=== PATIENT | male | born 1985 | race Caucasian/White ===

== ENCOUNTER 2022-03-01 13:42 | Emergency (ER) | payer OTHER ==
[2022-03-01 13:53] VITALS: BP 138/79; PULSE 100; TEMP 97.9
[2022-03-01] MEDS ORDERED: DIPH,PERTUS(ACELL)TETVAC-LF 0.5 ML VIAL IM ONE (16:17)
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
[2022-03-01 16:36] VITALS: RESP 16
== END 2022-03-01 16:35 | disposition home or self-care (01) ==
LOC: EC 13:42
DX: S01.81XA Laceration without foreign body of other part of head, initial encounter (principal); F17.200 Nicotine dependence, unspecified, uncomplicated; Z91.011 Allergy to milk products; Z23 Encounter for immunization; Z91.018 Allergy to other foods; V28.59XA Other motorcycle passenger injured in noncollision transport accident in traffic accident, initial encounter; Y92.410 Unspecified street and highway as the place of occurrence of the external cause
CPT/HCPCS: 12011; 70450; 72125; 90471; 90715; 99283

== ENCOUNTER 2023-02-06 13:48 | Emergency (ER) | payer OTHER ==
[2023-02-06] MEDS ORDERED: SODIUM CHLORIDE 0.9% 1,000 ML IV STA ×2 (13:54→15:00)
[2023-02-06] MEDS ORDERED: KETOROLAC 15 MG/ML 1 ML VIAL IVP STA (14:03)
[2023-02-06] MEDS ORDERED: ONDANSETRON 4 MG/2 ML VIAL IVP STA (14:03)
[2023-02-06 14:05] VITALS: TEMP 98.5
--- NOTE | 2023-02-06 14:22 | ED ---
Abdominal Pain HPI - General Chief Complaint: Abdominal Pain Stated Complaint: apendix Time Seen by Provider: 02/06/23 13:54 Source: patient Mode of arrival: ambulatory Limitations: no limitations - History of Present Illness Initial Comments: Patient is a 37-year-old male who presents to the emergency department for abdominal pain. Patient has had intermittent abdominal pain for the past week. Pain radiates to his side and left lower/middle back. No fever or chills. Patient has had nausea and no vomiting. He has multiple episodes of diarrhea, n onbloody. No urinary symptoms. No history of kidney stones or infection. Patient does report drinking a lot of alcohol last night. No history of pancreatitis. No chest pain or shortness of breath. Patient does believe he has celiac disease he has never had a scope but has had gluten intolerance symptoms in the past. - Related Data Previous Rx's Medication Instructions Recorded Cephalexin [Keflex] 500 mg PO Q6HR #40 cap 11/14/14 Hydrocodone/Acetaminophen [Vicodin 1 each PO Q4HR PRN #20 tab 11/14/14 5-300 mg Tablet] Amoxic-Pot Clav 875-125Mg 1 tab PO BID #20 tab 02/06/23 [Augmentin 875-125] Ondansetron Odt [Zofran Odt] 4 mg PO Q8HR PRN #10 tab 02/06/23 Allergies Allergy/AdvReac Type Severity Reaction Status Date / Time gluten Allergy Swelling Verified 02/06/23 13:52 milk AdvReac Nausea Verified 02/06/23 13:52 Review of Systems ROS Statement: Those systems with pertinent positive or pertinent negative responses have been documented in the HPI. ROS Other: All systems not noted in ROS Statement are negative. Past Medical History Past Medical History: No Reported History Additional Past Medical History / Comment(s): With a staphylococcal infection of his right hand a few years ago. Also thought that was a spider bite. History of Any Multi-Drug Resistant Organisms: None Reported Past Surgical History: Hernia Repair Past Psychological History: No Psychological Hx Reported Smoking Status: Current every day smoker Past Alcohol Use History: Occasional Past Drug Use History: Marijuana General Exam Limitations: no limitations General appearance: alert, in distress (Pain) Head exam: Present: atraumatic, normocephalic, normal inspection Eye exam: Present: normal appearance, PERRL, EOMI. Absent: scleral icterus, conjunctival injection, periorbital swelling Respiratory exam: Present: normal lung sounds bilaterally. Absent: respiratory distress, wheezes, rales, rhonchi, stridor Cardiovascular Exam: Present: regular rate, normal rhythm, normal heart sounds. Absent: systolic murmur, diastolic murmur, rubs, gallop, clicks GI/Abdominal exam: Present: soft, tenderness (LUQ, LLQ), normal bowel sounds. Absent: distended, guarding, rebound, rigid Back exam: Present: normal inspection, full ROM, CVA tenderness (L), paraspinal tenderness (left lumbar). Absent: vertebral tenderness Neurological exam: Present: alert Psychiatric exam: Present: normal affect, normal mood Skin exam: Present: warm, dry, intact, normal color. Absent: rash Course Vital Signs 02/06/23 13:49 Temperature 98.5 F Pulse Rate 98 Respiratory 20 Rate Blood Pressure 105/49 O2 Sat by Pulse 98 Oximetry Medical Decision Making - Medical Decision Making Was pt. sent in by a medical professional or institution ([facility], [facility], urgent care, hospital, or custodial...) When possible be specific @ -[No] Did you speak to anyone other than the patient for history (EMS, parent, family, police, friend...)? What history was obtained from this source @ -[No] Did you review nursing and triage notes (agree or disagree)? Why? @ -[I reviewed and agree with nursing and triage notes] Were old charts reviewed (outside hosp., previous admission, EMS record, old EKG, old radiological studies, urgent care reports/EKG's, custodial records)? Report findings @ -[No old charts were reviewed] Differential Diagnosis (chest pain, altered mental status, abdominal pain women, abdominal pain men, vaginal bleeding, weakness, fever, dyspnea, syncope, headache, dizziness, GI bleed, back pain, seizure, CVA, palpatations, mental health)? @ -Differential Abdominal Pain Men: Appendicitis, cholecystitis, diverticulosis, ischemic bowel, pancreatitis, hepatitis, UTI, gastroenteritis, AAA, incarcerated hernia, bowel obstruction, constipation, inflammatory bowel, hepatitis, peptic ulcer disease, splenic infarction, perforated viscus, testicular torsion, this is not meant to be an all-inclusive list EKG interpreted by me (3pts min.). @ -[As above] X-rays interpreted by me (1pt min.). @ -[None done] CT interpreted by me (1pt min.). @ -Colitis, distal ileum mildly inflamed. Infectious/inflammatory process. Appendix is normal limits U/S interpreted by me (1pt. min.). @ -[None done] What testing was considered but not performed or refused? (CT, X-rays, U/S, labs)? Why? @ -[None] What meds were considered but not given or refused? Why? @ -[None] Did you discuss the management of the patient with other professionals (professionals i.e. , PA, [facility], lab, RT, psych nurse, criminal justice social worker, supervisor production managing, teacher, forest fire officer, bilingual patient support caseworker)? Give summary @ -[No] Was smoking cessation discussed for >3mins.? @ -[No] Was critical care preformed (if so, how long)? @ -[No] Were there social determinants of health that impacted care today? How? (Homelessness, low income, unemployed, alcoholism, drug addiction, transportation, low edu. Level, literacy, decrease access to med. care, senior living, rehab)? @ -[No] Was there de-escalation of care discussed even if they declined (Discuss DNR or withdrawal of care, Hospice)? DNR status @ -[No] What co-morbidities impacted this encounter? (DM, HTN, Smoking, COPD, CAD, Can cer, CVA, ARF, Chemo, Hep., AIDS, mental health diagnosis, sleep apnea, morbid obesity)? @ -[None] Was patient admitted / discharged? Hospital course, mention meds given and route, prescriptions, significant lab abnormalities, going to OR and other pertinent info. @ -37-year-old presenting for left sided abdominal pain, nausea, diarrhea. The abdomen is soft there is tenderness in the left upper quadrant and left lower quadrant. No guarding.Laboratory studies obtained significant for leukocytosis of 17.1 with left shift. Lactic is elevated at 2.3, with anion gap metabolic acidosis, bicarb at 20, anion gap 16. Urinalysis reveals 1+ ketones no blood or infection. Patient given large fluid bolus, Zofran, Toradol. He continued to have nausea and pain. He was given a dose of Reglan and Dilaudid with improvement. CT interpreted by myself showing colitis of the distal ileum and ascending colon. Pain and nausea controlled. Results discussed with patient. Patient denies family history of autoimmune disease however with patient's history of gluten intolerance there is concern for autoimmune aspect. With elevated white count will treat for possible infectious etiology. Patient will be discharged with Augmentin, pain and nausea medication. He is encouraged to follow-up with GI specialist for further evaluation and management. Undiagnosed new problem with uncertain prognosis? @ -[No] Drug Therapy requiring intensive monitoring for toxicity (Heparin, Nitro, Insuli n, Cardizem)? @ -[No] Were any procedures done? @ -[No] Diagnosis/symptom? @ -colitis Acute, or Chronic, or Acute on Chronic? @ acute Uncomplicated (without systemic symptoms) or Complicated (systemic symptoms)? @ -uncomplicated Side effects of treatment? @ -[No] Exacerbation, Progression, or Severe Exacerbation? @ -[No] Poses a threat to life or bodily function? How? (Chest pain, [place], [place], pneumonia, PE, COPD, DKA, ARF, appy, cholecystitis, CVA, Diverticulitis, Homicidal, Suicidal, threat to staff... and all critical care pts) @ -[No] Dr. Rivas is my attending. - Lab Data Result diagrams: 02/06/23 14:19 02/06/23 14:19 Lab Results 02/06/23 02/06/23 02/06/23 Range/Units 14:19 14:19 14:19 WBC 17.1 H (3.8-10.6) k/uL RBC 4.88 (4.30-5.90) m/uL Hgb 15.8 (13.0-17.5) gm/dL Hct 46.5 (39.0-53.0) % MCV 95.3 (80.0-100.0) fL MCH 32.5 (25.0-35.0) pg MCHC 34.1 (31.0-37.0) g/dL RDW 12.4 (11.5-15.5) % Plt Count 306 (150-450) k/uL MPV 7.3 Neutrophils % 82 % Lymphocytes % 13 % Monocytes % 3 % Eosinophils % 1 % Basophils % 0 % Neutrophils # 14.0 H (1.3-7.7) k/uL Lymphocytes # 2.2 (1.0-4.8) k/uL Monocytes # 0.6 (0-1.0) k/uL Eosinophils # 0.2 (0-0.7) k/uL Basophils # 0.1 (0-0.2) k/uL Sodium 140 (137-145) mmol/L Potassium 4.4 (3.5-5.1) mmol/L Chloride 104 (98-107) mmol/L Carbon Dioxide 20 L (22-30) mmol/L Anion Gap 16 mmol/L BUN 10 (9-20) mg/dL Creatinine 0.85 (0.66-1.25) mg/dL Est GFR (CKD-EPI)AfAm >90 (>60 ml/min/1.73 sqM) Est GFR (CKD-EPI)NonAf >90 (>60 ml/min/1.73 sqM) Glucose 86 (74-99) mg/dL Lactic Ac Sepsis Rflx Plasma Lactic Acid Zak (0.7-2.0) mmol/L Calcium 9.5 (8.4-10.2) mg/dL Total Bilirubin 0.5 (0.2-1.3) mg/dL AST 28 (17-59) U/L ALT 36 (4-49) U/L Alkaline Phosphatase 106 (38-126) U/L Total Protein 7.9 (6.3-8.2) g/dL Albumin 4.8 (3.5-5.0) g/dL Lipase 71 (23-300) U/L Urine Color Yellow Urine Appearance Clear (Clear) Urine pH 5.5 (5.0-8.0) Ur Specific [place] 1.029 (1.001-1.035) Urine Protein Trace H (Negative) Urine Glucose (UA) Negative (Negative) Urine Ketones 1+ H (Negative) Urine Blood Negative (Negative) Urine Nitrite Negative (Negative) Urine Bilirubin Negative (Negative) Urine Urobilinogen <2.0 (<2.0) mg/dL Ur Leukocyte Esterase Negative (Negative) 02/06/23 02/06/23 Range/Units 14:19 14:56 WBC (3.8-10.6) k/uL RBC (4.30-5.90) m/uL Hgb (13.0-17.5) gm/dL Hct (39.0-53.0) % MCV (80.0-100.0) fL MCH (25.0-35.0) pg MCHC (31.0-37.0) g/dL RDW (11.5-15.5) % Plt Count (150-450) k/uL MPV Neutrophils % % Lymphocytes % % Monocytes % % Eosinophils % % Basophils % % Neutrophils # (1.3-7.7) k/uL Lymphocytes # (1.0-4.8) k/uL Monocytes # (0-1.0) k/uL Eosinophils # (0-0.7) k/uL Basophils # (0-0.2) k/uL Sodium (137-145) mmol/L Potassium (3.5-5.1) mmol/L Chloride (98-107) mmol/L Carbon Dioxide (22-30) mmol/L Anion Gap mmol/L BUN (9-20) mg/dL Creatinine (0.66-1.25) mg/dL Est GFR (CKD-EPI)AfAm (>60 ml/min/1.73 sqM) Est GFR (CKD-EPI)NonAf (>60 ml/min/1.73 sqM) Glucose (74-99) mg/dL Lactic Ac Sepsis Rflx Y Plasma Lactic Acid Zak 2.3 H* (0.7-2.0) mmol/L Calcium (8.4-10.2) mg/dL Total Bilirubin (0.2-1.3) mg/dL AST (17-59) U/L ALT (4-49) U/L Alkaline Phosphatase (38-126) U/L Total Protein (6.3-8.2) g/dL Albumin (3.5-5.0) g/dL Lipase (23-300) U/L Urine Color Urine Appearance (Clear) Urine pH (5.0-8.0) Ur Specific [place] (1.001-1.035) Urine Protein (Negative) Urine Glucose (UA) (Negative) Urine Ketones (Negative) Urine Blood (Negative) Urine Nitrite (Negative) Urine Bilirubin (Negative) Urine Urobilinogen (<2.0) mg/dL Ur Leukocyte Esterase (Negative) Disposition Clinical Impression: Colitis Disposition: HOME SELF-CARE Condition: Good Instructions (If sedation given, give patient instructions): Colitis (ED) Additional Instructions: Take medication as directed. Alternate Tylenol and Motrin every 3-4 hours for pain. Save Tylenol 3 for severe pain. Do not take Tylenol and Tylenol 3 together. Do not operate machinery or drink alcohol with taking Tylenol 3. Follow up with GI specialist in 1-2 days you will likely need scope. Return to the emergency department if you experience new, concerning, or worsening symptoms. Prescriptions: Amoxic-Pot Clav 875-125Mg [Augmentin 875-125] 1 tab PO BID #20 tab Ondansetron Odt [Zofran Odt] 4 mg PO Q8HR PRN #10 tab PRN Reason: Nausea Is patient prescribed a controlled substance at d/c from ED?: No Referrals: Dennis Gabriel MD [Primary Care Provider] - 1-2 days Suzy Beckett MD [STAFF PHYSICIAN] - 1-2 days
[2023-02-06 14:35] LABS: Basophils # (A) 0.1 k/uL (0-0.2); Basophils % (A) 0 %; Eosinophils # (A) 0.2 k/uL (0-0.7); Eosinophils % (A) 1 %; HCT 46.5 % (39.0-53.0); HGB 15.8 gm/dL (13.0-17.5); Lymphocytes # (A) 2.2 k/uL (1.0-4.8); Lymphocytes % (A) 13 %; MCH 32.5 pg (25.0-35.0); MCHC 34.1 g/dL (31.0-37.0); MCV 95.3 fL (80.0-100.0); Mean Platelet Volume 7.3; Monocytes # (A) 0.6 k/uL (0-1.0); Monocytes % (A) 3 %; Neutrophils % (A) 82 %; Platelet Count 306 k/uL (150-450); RBC 4.88 m/uL (4.30-5.90); RDW 12.4 % (11.5-15.5); WBC 17.1 k/uL (3.8-10.6)
[2023-02-06 14:48] LABS: ALT 36 U/L (4-49); AST 28 U/L (17-59); African American GFR (CKD) >90 (>60 ml/min/1.73 sqM); Albumin 4.8 g/dL (3.5-5.0); Alkaline Phosphatase 106 U/L (38-126); Anion Gap 16 mmol/L; Blood Urea Nitrogen 10 mg/dL (9-20); Calcium 9.5 mg/dL (8.4-10.2); Carbon Dioxide 20 mmol/L (22-30); Chloride 104 mmol/L (98-107); Glucose 86 mg/dL (74-99); Lipase 71 U/L (23-300); Non-African American GFR(CKD) >90 (>60 ml/min/1.73 sqM); Potassium 4.4 mmol/L (3.5-5.1); Sodium 140 mmol/L (137-145); Total Bilirubin 0.5 mg/dL (0.2-1.3); Total Protein 7.9 g/dL (6.3-8.2)
[2023-02-06 15:19] LABS: Appearance,Urine Clear (Clear); Bilirubin,Urine Negative (Negative); Blood,Urine Negative (Negative); Color,Urine Yellow; Glucose,Urine (UA) Negative (Negative); Ketones,Urine 1+ (Negative); Leukocyte Esterase,Urine Negative (Negative); Nitrite,Urine Negative (Negative); PH, Urine 5.5 (5.0-8.0); Protein,Urine Trace (Negative); Specific Gravity,Urine 1.029 (1.001-1.035); Urobilinogen,Urine <2.0 mg/dL (<2.0)
--- NOTE | 2023-02-06 16:22 | CT ---
EXAMINATION TYPE: CT abdomen pelvis w con CT DLP: 1084.7 mGycm, Automated exposure control for dose reduction was used. DATE OF EXAM: 02/06/2023 2:44 PM COMPARISON: CT abdomen pelvis most recent from CLINICAL INDICATION:Male, 37 years old with history of left abdominal pain, diarrhea; Left abdominal pain, diarrhea TECHNIQUE: Axial CT of the abdomen and pelvis. Sagittal and coronal reformats were created on a [employer] workstation. Contrast used:100 ml mL of Isovue 300 with IV Contrast, (none if empty) Oral contrast used: without Oral Contrast (none if empty) FINDINGS: LOWER CHEST: Unremarkable ABDOMEN LIVER: Unremarkable GALLBLADDER AND BILE DUCTS: Unremarkable. PANCREAS: Unremarkable. SPLEEN: Unremarkable. ADRENAL GLANDS: Unremarkable. KIDNEYS AND URETERS: Kidneys enhance symmetrically. 12 mm cyst in the upper pole left kidney. Tiny hy podensity farther inferiorly is too small to characterize but may also be a cyst. No visible calculi in the limitations of postcontrast study. PELVIS BLADDER: Unremarkable REPRODUCTIVE: Nonenlarged prostate with punctate calcification on the left. ABDOMEN & PELVIS STOMACH AND BOWEL: Stomach and small bowel are nondistended, no evidence of obstruction. Colon is non distended without enteric contrast present. What appears to be appendix is seen axial images 58-61, d oes not appear dilated or inflamed. However, the terminal ileum appears mildly inflamed. There is collette arent colonic wall thickening throughout, likely greatest in the ascending colon. PERITONEUM/RETROPERITONEUM: No evidence of pneumoperitoneum or free fluid. VASCULATURE: No evidence of aortic aneurysm. MUSCULOSKELETAL: No acute osseous abnormalities LYMPH NODES: No bulky lymphadenopathy is seen. Mildly prominent mesenteric nodes in the right lower q uadrant, likely reactive. SOFT TISSUE/ABDOMINAL WALL: Small fat-containing right inguinal hernia. No acute abnormality. IMPRESSION: 1. Findings suggestive of colitis as described. Distal ileum appears mildly inflamed. This likely re flects infectious/inflammatory process, IBD/Crohn's disease is a possibility. 2. Appendix appears within normal limits.
[2023-02-06] MEDS ORDERED: METOCLOPRAMIDE 5 MG/ML 2 ML VIAL IVP STA (16:42)
[2023-02-06] MEDS ORDERED: HYDROmorphone 0.5 MG/0.5 ML SYRINGE IVP STA (16:42)
[2023-02-06] MEDS ORDERED: AMOXIC-POT CLAV 875-125MG 1 EACH TAB PO STA (16:43)
[2023-02-06] MEDS ORDERED: ACET/COD 300 MG/30 MG STARTER PACK 6 TAB BTL PO STA (17:31)
[2023-02-06 18:01] VITALS: BP 110/52; PULSE 65; RESP 16
== END 2023-02-06 17:54 | disposition home or self-care (01) ==
LOC: EC 13:48
DX: K52.9 Noninfective gastroenteritis and colitis, unspecified (principal); F12.90 Cannabis use, unspecified, uncomplicated; F17.200 Nicotine dependence, unspecified, uncomplicated; Z91.018 Allergy to other foods; Z91.011 Allergy to milk products
CPT/HCPCS: 36415; 80053; 83605; 83690; 85025; 81003; 74177; 99284; 96374; 96375 ×3; 96361; J2765; J2405; J1885; J1170; Q9967

== ENCOUNTER 2024-11-15 19:46 | Emergency (ER) | payer SELFPAY ==
[2024-11-15] MEDS: Acetaminophen-Codeine 300-30mg TAB PO STA (20:07)
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
[2024-11-15] MEDS: HYDROmorphone 1 MG/ML 1 ML SYRINGE IM STA (20:42)
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
--- NOTE | 2024-11-15 22:08 | ED ---
General Adult HPI - General Chief complaint: Extremity Injury, Lower Stated complaint: L knee Pain Time Seen by Provider: 11/15/24 20:27 Source: patient Mode of arrival: ambulatory Limitations: no limitations - History of Present Illness Initial comments: 39-year-old male presented with chief complaint of left knee injury. Patient was wakeboarding when he fell onto the left knee. States that he felt a pop. States he is having some tingling in his big toe. He still has range of motion of the toes. No laceration. Swelling is present. - Related Data Previous Rx's Medication Instructions Recorded Cephalexin [Keflex] 500 mg PO Q6HR #40 cap 11/14/14 Hydrocodone/Acetaminophen [Vicodin 1 each PO Q4HR PRN #20 tab 11/14/14 5-300 mg Tablet] Amoxic-Pot Clav 875-125Mg 1 tab PO BID #20 tab 02/06/23 [Augmentin 875-125] Ondansetron Odt [Zofran Odt] 4 mg PO Q8HR PRN #10 tab 02/06/23 Acetaminophen-Codeine 300-30mg 1 tab PO Q6H PRN 3 Days #12 tablet 11/15/24 [Tylenol w/codeine #3] Allergies Allergy/AdvReac Type Severity Reaction Status Date / Time gluten Allergy Swelling Verified 11/15/24 19:53 milk AdvReac Nausea Verified 11/15/24 19:53 Review of Systems ROS Statement: Those systems with pertinent positive or pertinent negative responses have been documented in the HPI. ROS Other: All systems not noted in ROS Statement are negative. Past Medical History Past Medical History: No Reported History Additional Past Medical History / Comment(s): With a staphylococcal infection of his right hand a few years ago. Also thought that was a spider bite. History of Any Multi-Drug Resistant Organisms: None Reported Past Surgical History: Hernia Repair Past Psychological History: No Psychological Hx Reported Smoking Status: Current every day smoker Past Alcohol Use History: Occasional Past Drug Use History: Marijuana General Exam Limitations: no limitations General appearance: alert, in no apparent distress Head exam: Present: atraumatic, normocephalic, normal inspection Eye exam: Present: normal appearance, EOMI Neck exam: Present: normal inspection. Absent: meningismus Respiratory exam: Absent: respiratory distress Cardiovascular Exam: Present: regular rate Left Knee exam: Present: tenderness, swelling. Absent: full ROM Neurovascular tendon exam: Present: no vascular compromise Neurological exam: Present: alert, oriented X3 Psychiatric exam: Present: normal affect, normal mood Skin exam: Present: warm, dry, normal color Course Vital Signs 11/15/24 11/15/24 19:50 22:27 Temperature 98.2 F 98.1 F Pulse Rate 76 71 Respiratory 15 18 Rate Blood Pressure 105/62 114/75 O2 Sat by Pulse 99 99 Oximetry Medical Decision Making - Medical Decision Making Was pt. sent in by a medical professional or institution (, PA, BANK MESSENGER, urgent care, hospital, or skilled nursing...) When possible be specific @ -No Did you speak to anyone other than the patient for history (EMS, parent, family, police, friend...)? What history was obtained from this source @ -No Did you review nursing and triage notes (agree or disagree)? Why? @ -I reviewed and agree with nursing and triage notes Were old charts reviewed (outside hosp., previous admission, EMS record, old EKG, old radiological studies, urgent care reports/EKG's, skilled nursing records)? Report findings @ -No old charts were reviewed Differential Diagnosis (chest pain, altered mental status, abdominal pain women, abdominal pain men, vaginal bleeding, weakness, fever, dyspnea, syncope, headache, dizziness, GI bleed, back pain, seizure, CVA, palpatations, mental h ealth, musculoskeletal)? @ -Differential Musculoskeletal Muscular strain, contusion, ligament sprain, fracture, arthritis, septic arthritis, bursitis, cellulitis, muscle spasm, nerve compression, DVT, arterial occlusion, herpes zoster, electrolyte abnormality, tumor.... This is not meant to be in all inclusive list EKG interpreted by me (3pts min.). @ -As above X-rays interpreted by me (1pt min.). @ -X-ray shows comminuted nondisplaced fracture involving the intercondylar region and medial tibial plateau with evidence of extension into the tibiofemoral joint. Moderate to large lipohemarthrosis. No unexpected radiopaque foreign body CT interpreted by me (1pt min.). @ -CT shows comminuted fracture of the medial tibial plateau and intercondylar region with extension into the tibiotalar joint U/S interpreted by me (1pt. min.). @ -None done What testing was considered but not performed or refused? (CT, X-rays, U/S, labs)? Why? @ -None What meds were considered but not given or refused? Why? @ -None Did you discuss the management of the patient with other professionals (professionals i.e. , PA, BANK MESSENGER, lab, RT, psych nurse, dialysis social worker, mannequin coloring artist, teacher, disability insurance hearing officer, correctional counselor/case manager)? Give summary @ -Spoke with Dr. Waters who states that the patient to be placed in a knee immobilizer, obtain CT, have patient follow-up outpatient with Ortho trauma at [facility]. Can be discharged with outpatient follow-up Was smoking cessation discussed for >3mins.? @ -No Was critical care preformed (if so, how long)? @ -No Were there social determinants of health that impacted care today? How? (Homelessness, low income, unemployed, alcoholism, drug addiction, transportation, low edu. Level, literacy, decrease access to med. care, care home, rehab)? @ -No Was there de-escalation of care discussed even if they declined (Discuss DNR or withdrawal of care, Hospice)? DNR status @ -No What co-morbidities impacted this encounter? (DM, HTN, Smoking, COPD, CAD, Cancer, CVA, ARF, Chemo, Hep., AIDS, mental health diagnosis, sleep apnea, morbid obesity)? @ -None Was patient admitted / discharged? Hospital course, mention meds given and route, prescriptions, significant lab abnormalities, going to OR and other pertinent info. @ -39-year-old male presenting chief complaint of left knee injury. X-ray positive for nondisplaced tibial plateau fracture. Spoke with orthopedist on-c all Dr. Shipman. States that the patient will build to follow-up outpatient. Advised knee immobilizer and to obtain CT of the knee. Advised that the patient follow-up with Ortho trauma. Patient is educated on today's findings. Instructed to keep his immobilizer on and remain nonweightbearing. Provided with crutches and pain meds. Follow-up with PCP. Report back to ER with any new or worsening symptoms. Discussed return parameters and answered all questions. Patient conveyed verbal understanding and agreed to the plan. I discussed this case in detail with my attending Dr. Paz Undiagnosed new problem with uncertain prognosis? @ -No Drug Therapy requiring intensive monitoring for toxicity (Heparin, Nitro, Insulin, Cardizem)? @ -No Were any procedures done? @ -No Diagnosis/symptom? @ -Tibial plateau fracture Acute, or Chronic, or Acute on Chronic? @ -Acute Uncomplicated (without systemic symptoms) or Complicated (systemic symptoms)? @ -Uncomplicated Side effects of treatment? @ -No Exacerbation, Progression, or Severe Exacerbation? @ -No Poses a threat to life or bodily function? How? (Chest pain, USA, MS, pneumonia, PE, COPD, DKA, ARF, appy, cholecystitis, CVA, Diverticulitis, Homicidal, Suicidal, threat to staff... and all critical care pts) @ -Potential if the patient does not follow-up with orthopedics as instructed Disposition Clinical Impression: Tibial plateau fracture Disposition: HOME SELF-CARE Condition: Fair Instructions (If sedation given, give patient instructions): Leg Fracture (ED) Additional Instructions: Follow-up with orthopedics. Report back to ER with any new or worsening sympto ms. Remain nonweightbearing on your left leg, keep the knee immobilizer on. Prescriptions: Acetaminophen-Codeine 300-30mg [Tylenol w/codeine #3] 1 tab PO Q6H PRN 3 Days #12 tablet PRN Reason: Pain Is patient prescribed a controlled substance at d/c from ED?: Yes When asked, does pt state using other controlled substances?: No If prescribed controlled substance>3 days was MAPS reviewed?: Prescribed <3 Days If opioid is for acute pain is fill amount 7 days or less?: Yes Referrals: Dennis Gabriel MD [Primary Care Provider] - 1-2 days Jayden Willoughby DO [REFERRING] - 1-2 days Time of Disposition: 22:12
[2024-11-15] MEDS: ACET/COD 300 MG/30 MG STARTER PACK TAB BTL PO STA (22:27)
[2024-11-15 22:34] VITALS: BP 114/75; PULSE 71; RESP 18; TEMP 98.1
== END 2024-11-15 22:27 | disposition home or self-care (01) ==
LOC: EC 19:46
DX: S82.122A Displaced fracture of lateral condyle of left tibia, initial encounter for closed fracture (principal); F17.200 Nicotine dependence, unspecified, uncomplicated; Z91.011 Allergy to milk products; Z88.8 Allergy status to other drugs, medicaments and biological substances; W17.89XA Other fall from one level to another, initial encounter; Y93.17 Activity, water skiing and wake boarding
CPT/HCPCS: 73562; 73700; 99284; 96372; L1830 ×2; J1171